=== PATIENT | female | born 1995 | race Caucasian/White ===

== ENCOUNTER 2019-12-10 09:04 | Emergency (ER) | payer OTHER ==
[~2019-12-10] VITALS: Ht 162.6 cm; Wt 82.0 kg
[2019-12-10 09:12] VITALS: BP 118/57
--- NOTE | 2019-12-10 09:57 | PHYS DOC ---
Past Medical History Past Medical History: No Pertinent History Past Surgical History: Other Additional Past Surgical Histo: breast augmentation Smoking Status: Never Smoker Alcohol Use: None General Adult EDM: Chief Complaint: EARACHE/EAR PAIN HPI: HPI: 24-year-old female approximately 29 weeks (C[facility] 04/25/20, ob @ [facility]), recently diagnosed with gestational diabetes (diet starts today), presents to the ED with complaints of left ear being clogged since last night. Patient thought she laid on her ear wrong and was using peroxide with no relief. Review of systems: No associated fever, chills, cough, dyspnea, sore throat, nasal congestion, TMJ pain, discharge from ear, neck stiffness, abdominal pain, vaginal bleeding or abnormal discharge, headache, or decreased hearing. Physical Exam: PE: Constitutional: Well developed, well nourished, no acute distress, non-toxic appearance. [] HENT: Normocephalic, atraumatic, bilateral external ears normal, oropharynx moist, no oral exudates, nose normal. Bilateral cerumen impactions, no obliteration of auricular crease, no mastoid tenderness Eyes: EOMI, conjunctiva normal, no discharge. [] Neck: Normal range of motion, no tenderness, supple, no stridor. [] Cardiovascular:Heart rate regular rhythm, no murmur [] Lungs & Thorax: Bilateral breath sounds clear to auscultation [] Abdomen: Bowel sounds normal, soft, no tenderness, no masses, no pulsatile masses. Gravid, no pain Skin: Warm, dry, no erythema, no rash. [] Back: No tenderness, no CVA tenderness. [] Extremities: No tenderness, no cyanosis, no clubbing, ROM intact, no edema. [] Neurologic: Alert and oriented X 3, normal motor function, normal sensory functi on, no focal deficits noted. [] Psychologic: Affect normal, judgement normal, mood normal. [] Current Patient Data: Vital Signs: Vital Signs Date Time Temp Pulse Resp B/P (MAP) Pulse Ox O2 Delivery O2 Flow Rate FiO2 12/10/19 09:12 98.2 96 15 118/57 (77) 98 Room Air 98.2 EKG: EKG: [] Radiology/Procedures: Radiology/Procedures: Hydrogen peroxide to left ear, irrigated by rn with successful disimpaction. Scant bleeding at 6 o'clock. Impression: Bilateral cerumen impactions, left ear symptomatic. ABx drops prescribed. Followup with pmd/ent. NO hearing loss-strict return precautions for fever or hearing loss. All of her questions were answered and she was stable at time of discharge. Course & Med Decision Making: Course & Med Decision Making Pertinent Labs and Imaging studies reviewed. (See chart for details) [] Dragon Disclaimer: Dragon Disclaimer: This electronic medical record was generated, in whole or in part, using a voice recognition dictation system. Departure Departure Impression: Primary Impression: Impacted cerumen of both ears Disposition: HOME, SELF-CARE Condition: STABLE Referrals: NO PCP (PCP) CHANG KIRK [facility] Patient Instructions: Cerumen Impaction Scripts Ciprofloxacin Hcl/Dexameth (CIPRODEX OTIC SUSPENSION) 7.5 Ml Drops.susp 3 DROP LEFT EAR BID for 7 Days, #7.5 ML Prov: ROGER MAGALLANES DO 12/10/19 Justicifation of Admission Dx: Justifications for Admission: Justification of Admission Dx: N/A ROGER MAGALLANES DO Dec 10, 2019 09:57
[2019-12-10] MEDS ORDERED: CIPR7.5D LEFT EAR (11:18)
== END 2019-12-10 11:23 | disposition home or self-care (01) ==
LOC: ER 09:04
DX: O26.893 Other specified pregnancy related conditions, third trimester (principal); H61.23 Impacted cerumen, bilateral; Z98.890 Other specified postprocedural states; Z3A.29 29 weeks gestation of pregnancy
CPT/HCPCS: 69209; 99283